=== PATIENT | female | born 1985 | race Caucasian/White ===

== ENCOUNTER 2016-12-28 18:47 | Emergency (ER) | payer OTHER ==
[~2016-12-28] VITALS: Ht 167.6 cm; Wt 63.6 kg
[2016-12-28 18:58] VITALS: BP 115/67; PULSE 80; RESP 16; O2SAT 100
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
[2016-12-28] MEDS ORDERED: 0.9% Sodium Chloride 1,000 ML IV ONE (21:07)
[2016-12-28] MEDS: HYDROmorphone 0.5 mg/0.5 mL iSecure Syringe IVPUSH PRN (21:26)
[2016-12-28 21:32] LABS: BASOPHILS % (AUTO) 0.2 % (0-3); EOSINOPHILS % (AUTO) 0.1 % (0-5); Mean Corpuscular Volume 91.5 fL (81-100); NEUTROPHILS % (AUTO) 86.7 % (40-74); Platelet Count 256 bil/L (150-400)
[2016-12-29] MEDS ORDERED: _HYDROcodone/APAP 5-325 mg Tablet PO PRN
[2016-12-29 00:55] VITALS: BP 103/63; PULSE 89; RESP 16; O2SAT 100
[2016-12-29] MEDS: HYDROmorphone 0.5 mg/0.5 mL iSecure Syringe IVPUSH PRN (00:56)
--- NOTE | 2016-12-29 08:17 | DRSVH ---
PROCEDURE: CT ANGIO LOWER EXTREMITY, LEFT INDICATIONS: knee injury TECHNIQUE: After the administration of intravenous contrast, 2 and 5 mm sections acquired of the entire left low er extremity, with optional delayed image acquisition from the knees to the feet. 3-dimensional maxi mum intensity projection (MIP) coronal and sagittal reformats, and/or 3-dimensional volume rendering reformatting was then performed. For radiation dose reduction, the following was used: automated expo sure control, adjustment of mA and/or kV according to patient size. COMPARISON: [facility], CR, XR KNEE 1 OR 2VW LT, 12/28/2016, 19:40. FINDINGS: Image quality: Excellent. Extravascular tissues: No fractures. There is high riding patella. The patella tendon is irregular a nd thickened. There is a linear soft tissue in the infrapatellar fat, suspicious for small hematoma. There is a small knee joint effusion. Suprapatellar soft tissue swelling noted. Femoral and popliteal vessels: Superficial femoral artery and popliteal artery are normal in caliber and patent. No extravasation of contrast. Calf and ankle vessels: Trifurcation is normal. The anterior tibial artery, peroneal artery and poste rior to artery are patent. No intravasation of contrast. IMPRESSION: 1. Normal left lower extremity angiogram. No evidence for vessel injury. 2. High riding patella. The patellar tendon is irregular and thickened. There is a small hematoma in the prepatellar fat pad. The findings are suspicious for patellar tendon injury. MRI may be helpful f or further evaluation. This finding was not mentioned on the preliminary night worker radiology report . The result was discussed with Dr. Sumner in ER on 12/29/2016 on 11:. Dictated by: Karla Elkins M.D. on 12/29/2016 at 8:00 Transcribed by: DEBBIE on 12/29/2016 at 8:17 Approved by: Karla Elkins M.D. on 12/29/2016 at 11:33
== END 2016-12-29 00:56 | disposition home or self-care (01) ==
LOC: SED 18:47
DX: M25.562 Pain in left knee (principal); V86.09XA Driver of other special all-terrain or other off-road motor vehicle injured in traffic accident, initial encounter; Y92.410 Unspecified street and highway as the place of occurrence of the external cause; Y93.55 Activity, bike riding; Y99.8 Other external cause status
CPT/HCPCS: 36415; 73560; 73706; 80053; 81025; 85025; 96361; 96374; 96376; 99285; J1170; J7030; Q9967